=== PATIENT | female | born 1995 | race Caucasian/White ===

== ENCOUNTER 2021-02-22 10:23 | Day surgery (SDC) | payer BC ==
[2021-02-22 11:54] LABS: Fetal Membranes Rupture No Membranes Rupture (No Rupture)
[2021-02-22] MEDS ORDERED: hydrALAZINE 20 MG/ML VIAL SLOW IVP PRN (12:23)
== END 2021-02-22 12:34 | disposition home or self-care (01) ==
LOC: CSHLD/OP 10:23
PROVIDERS: ATTEND Obstetrics & Gynecology
DX: O99.891 Other specified diseases and conditions complicating pregnancy (principal); N89.8 Other specified noninflammatory disorders of vagina; Z3A.37 37 weeks gestation of pregnancy; Z79.899 Other long term (current) drug therapy
CPT/HCPCS: 84112; 87480; 87510; 87660; 99283

== ENCOUNTER 2021-03-03 05:04 | Inpatient (IN) | payer BC ==
[2021-03-03] MEDS ORDERED: Promethazine HCl 25 MG/ML VIAL IM PRN (05:57)
[2021-03-03] MEDS ORDERED: Lactated Ringer's 1,000 ML IV PRN ×2 (05:57)
[2021-03-03] MEDS ORDERED: Ondansetron PF 4 MG/2 ML Vial IVP PRN ×2 (05:57→20:27)
[2021-03-03] MEDS ORDERED: Carboprost 250 MCG/ML AMP IM PRN (05:57)
[2021-03-03] MEDS ORDERED: Lidocaine 1% (PF) 30 ML VIAL SC PRN (05:57)
[2021-03-03] MEDS ORDERED: Ibuprofen 800 MG TAB PO PRN (05:57)
[2021-03-03] MEDS ORDERED: Acetaminophen 500 MG TAB PO PRN (05:57)
[2021-03-03] MEDS ORDERED: hydrALAZINE 20 MG/ML VIAL SLOW IVP PRN ×2 (05:57→20:27)
[2021-03-03] MEDS ORDERED: Butorphanol Tartrate 1 MG/ML VIAL SLOW IVP PRN (05:57)
[2021-03-03] MEDS ORDERED: HYDROcodone/Acetaminophen 5/325 mg Tablet PO PRN ×4 (05:57→20:27)
[2021-03-03] MEDS ORDERED: Diphenoxylate HCl/Atropine Tablet PO PRN (05:57)
[2021-03-03] MEDS ORDERED: Misoprostol 200 MCG TAB PR PRN (05:57)
[2021-03-03] MEDS ORDERED: NS w/ Oxytocin 30 units 500 ML IV PRN (05:57)
[2021-03-03] MEDS ORDERED: Methylergonovine 0.2 MG/ML VIAL IM PRN ×2 (05:57→20:27)
[2021-03-03] MEDS ORDERED: NS w/ Oxytocin 30 units 500 ML IV SCH (06:00)
[2021-03-03 08:03] LABS: Hemoglobin 12.6 g/dL (12.0-15.5); Mean Corpuscular Hemoglobin 30.3 pg (27.0-33.0); Mean Corpuscular Volume 91.8 fl (81.6-98.3); Mean Platelet Volume 10.4 fl (7.4-10.4); Platelet Count 226 10x3/uL (150-450); RBC Distribution Width 12.7 % (11.5-14.5); Red Blood Cell (RBC) Count 4.16 10x6/uL (3.90-5.03)
[2021-03-03 08:23] LABS: Hep B Surf Ag Non-Reactive S/CO (NonReactive); Syphilis Antibody Nonreactive (Nonreactive); Syphilis Antibody Index 0.03 S/CO (<1.00 Non-Reactive)
[2021-03-03 08:29] LABS: HBSAg Index 0.22 S/CO (0-0.99)
[2021-03-03 09:03] LABS: SARS-CoV-2 NAA Rapid Test Not Detected (NotDetected)
[2021-03-03] MEDS ORDERED: Boostrix 0.5 ML (Tdap) VIAL IM ONE (20:27)
[2021-03-03] MEDS ORDERED: Lanolin Ointment 7 GM TUBE TOP PRN (20:27)
[2021-03-03] MEDS ORDERED: Bisacodyl 10 MG SUPP PR PRN (20:27)
[2021-03-03] MEDS ORDERED: Misoprostol 200 MCG TAB VAG PRN (20:27)
[2021-03-03] MEDS ORDERED: Benzocaine-Menthol 82.5 ML CAN TOP PRN (20:27)
[2021-03-03] MEDS ORDERED: Milk Of Magnesia 30 ML UDCUP PO PRN (20:27)
[2021-03-03] MEDS: Docusate Calcium (SURFAK) 240 MG CAP PO SCH (21:24)
[2021-03-03] MEDS: Ibuprofen 800 MG TAB PO SCH (21:24)
[2021-03-04] MEDS: Ibuprofen 800 MG TAB PO SCH ×2 (06:14→13:59)
[2021-03-04] MEDS ORDERED: Ferrous Sulfate 325 MG TAB PO SCH (08:00)
[2021-03-04] MEDS: Docusate Calcium (SURFAK) 240 MG CAP PO SCH (08:30)
[2021-03-04] MEDS ORDERED: Prenatal Vitamin 1 TAB PO SCH (09:00)
[2021-03-04 13:19] VITALS: BP 130/65; TEMP 98.6
== END 2021-03-04 18:20 | disposition home or self-care (01) | DRG 807 ==
LOC: CSHLD/OP 05:04 → CSHLD 05:51 → CSHPP 16:50
PROVIDERS: ADMIT Obstetrics & Gynecology; ATTEND Obstetrics & Gynecology
PROC: 10E0XZZ Delivery of Products of Conception, External Approach (ICD-10-PCS; principal; 2021-03-03)
PROC: 0UQMXZZ Repair Vulva, External Approach (ICD-10-PCS; 2021-03-03)
DX: O71.82 Other specified trauma to perineum and vulva (principal); Z37.0 Single live birth; Z20.822 Contact with and (suspected) exposure to COVID-19; Z3A.39 39 weeks gestation of pregnancy
CPT/HCPCS: 36415; 85027; 86780; 86850; 86900; 86901; 87340; J2405; J2590; U0002